=== PATIENT | female | born 2005 | race Hispanic/Latino ===

== ENCOUNTER 2023-04-16 18:08 | Emergency (ER) | payer SELFPAY ==
[2023-04-16] MEDS ORDERED: Lidocaine 1% (PF) 30 ML VIAL ONE (19:06)
[2023-04-16] MEDS ORDERED: HYDROcodone/Acetaminophen 5/325 mg Tablet ONE (19:08)
== END 2023-04-16 19:45 | disposition home or self-care (01) ==
LOC: NAV ERS 18:08
DX: L05.01 Pilonidal cyst with abscess (principal)
CPT/HCPCS: 10080; J2001